=== PATIENT | female | born 1975 | race Caucasian/White ===

== ENCOUNTER 2017-05-05 15:06 | Emergency (ER) | payer OTHER ==
[~2017-05-05] VITALS: Wt 69.9 kg
[~2017-05-05 15:06] MED LIST: MACROBID100 M1 PO; PREDNICOT20 MG PO; TESSALON PERLE100 M1 PO; ULTRAM50 MG PO; VIBRAMYCIN100 MG PO
[2017-05-05 15:30] VITALS: BP 114/83
[2017-05-05] MEDS ORDERED: KENALOG 0.1%80 GM T (15:53)
== END 2017-05-05 15:58 | disposition home or self-care (01) ==
LOC: ED 15:06
DX: L25.9 Unspecified contact dermatitis, unspecified cause (principal); F17.200 Nicotine dependence, unspecified, uncomplicated; Z98.51 Tubal ligation status; Z88.8 Allergy status to other drugs, medicaments and biological substances

== ENCOUNTER 2018-01-13 14:22 | Emergency (ER) | payer OTHER ==
[~2018-01-13] VITALS: Ht 160 cm; Wt 68.0 kg
[~2018-01-13 14:22] MED LIST changes: +KENALOG 0.1%80 GM T
[2018-01-13 14:26] VITALS: BP 137/83
[2018-01-13] MEDS ORDERED: ZYRTEC10 MG PO (15:36)
[2018-01-13] MEDS ORDERED: PROAIR HFA8.5 GM INH (15:36)
[2018-01-13] MEDS ORDERED: ZOFRAN ODT4 MG SL (15:36)
[2018-01-13] MEDS ORDERED: DELTASONE20 M1 PO (15:36)
[2018-01-13] MEDS ORDERED: TESSALON PERLE100 M1 PO (15:36)
== END 2018-01-13 15:42 | disposition home or self-care (01) ==
LOC: ED 14:22
DX: J40 Bronchitis, not specified as acute or chronic (principal); F17.200 Nicotine dependence, unspecified, uncomplicated; B34.9 Viral infection, unspecified; Z98.51 Tubal ligation status; Z79.899 Other long term (current) drug therapy; Z88.8 Allergy status to other drugs, medicaments and biological substances

== ENCOUNTER 2018-08-07 07:27 | Emergency (ER) | payer OTHER ==
[~2018-08-07] VITALS: Ht 157.4 cm; Wt 68.0 kg
[~2018-08-07 07:27] MED LIST changes: +DELTASONE20 M1 PO; +PROAIR HFA8.5 GM INH; +ZOFRAN ODT4 MG SL; +ZYRTEC10 MG PO
[2018-08-07 07:29] VITALS: BP 158/93
[2018-08-07] MEDS ORDERED: PREDNISONE50 MG PO (07:40)
[2018-08-07] MEDS ORDERED: AVPAK AZITHROM250 MG PO (07:40)
[2018-08-07] MEDS ORDERED: PROVENTIL HFA6.7 GM INH (07:40)
== END 2018-08-07 07:44 | disposition home or self-care (01) ==
LOC: ED 07:27
DX: J45.901 Unspecified asthma with (acute) exacerbation (principal); J32.0 Chronic maxillary sinusitis; F17.200 Nicotine dependence, unspecified, uncomplicated; Z88.8 Allergy status to other drugs, medicaments and biological substances; Z79.899 Other long term (current) drug therapy

== ENCOUNTER 2019-05-30 14:50 | Emergency (ER) | payer OTHER ==
[~2019-05-30] VITALS: Ht 157.4 cm; Wt 68.0 kg
--- NOTE | ~2019-05-30 | EKG ---
[place], [place] ELECTROCARDIOGRAM REPORT NAME: JILLIAN ARZOLA UNIT #: [id number] ROOM: DOCTOR: EPIPHANY DRAFT REPORT BIRTHDATE: [birth year] [facility] Test Date: 2019-05-30 Test Time: 16:11:15 Pat Name: JILLIAN ARZOLA Department: Room: Gender: F Aviation Program Manager: Chloé Foley : 1975 Requested By: JOSEE COMER DNP Order Number: [id number] Reading MD: Sky Meredith MD Measurements Intervals [place] Rate: 71 P: 77 ME: 152 QRS: 77 QRSD: 89 T: 72 QT: 388 QTc: 422 Interpretive Statements Sinus rhythm Low voltage, precordial leads Minimal ST elevation with ME depression in inferior leads Electronically Signed On 05-31-2019 11:44:03 PDT by Sky Meredith MD CM:[email or web address]:ELECTROCARDIOGRAM REPORT [id number] JOSEE COMER DNP EPIPHANY DRAFT REPORT JOSEE COMER DNP
[~2019-05-30 14:50] MED LIST changes: +AVPAK AZITHROM250 MG PO; +PREDNISONE50 MG PO; +PROVENTIL HFA6.7 GM INH
[2019-05-30 14:53] VITALS: BP 145/90
[2019-05-30 15:52] LABS: BASO # 0.1 10*3/uL (0.0-0.1); BASO % 0.6 % (0.0-1.0); EOS # 0.2 10*3/uL (0.0-0.4); EOS % 1.5 % (1.0-4.0); HEMATOCRIT 44.5 % (37.0-47.0); HEMOGLOBIN 14.2 g/dl (12.0-16.0); LYMPH # 3.7 10*3/uL (1.3-4.4); LYMPH % 28.6 % (27.0-41.0); MEAN CELL VOLUME 88.6 fl (81.0-99.0); MEAN CORPUSCULAR HGB 28.3 pg (27.0-31.0); MEAN CORPUSCULAR HGB CONC 31.9 g/dl (33.0-37.0); MEAN PLATELET VOLUME 10.5 fl (9.6-12.3); MONO # 0.8 10*3/uL (0.1-1.0); MONO % 5.9 % (3.0-9.0); NEUT # 8.2 10*3/uL (2.3-7.9); NEUT % 63.1 % (47.0-73.0); PLATELET COUNT AUTOMATED 322 10*3/uL (130-400); RED BLOOD COUNT 5.02 10*6/uL (4.10-5.10); RED CELL DISTRI WIDTH 13.9 % (0-14.5); WHITE BLOOD COUNT 13.1 10*3/uL (4.8-10.8)
[2019-05-30 16:14] LABS: ALBUMIN 3.6 gm/dl (3.1-4.5); ALKALINE PHOSPHATASE 128 U/L (45-117); BUN 8 mg/dl (7-24); CHLORIDE 107 mmol/L (98-107); CREATININE 0.67 mg/dL (0.55-1.02); POTASSIUM 3.5 mmol/L (3.5-5.1); SGOT/AST 14 IU/L (3-35); SGPT/ALT 25 U/L (12-78); SODIUM 140 mmol/L (136-145); TOTAL PROTEIN 7.5 gm/dL (6.4-8.2); TROPONIN I < 0.015 ng/ml (<0.045)
[2019-05-30] MEDS ORDERED: FLONASE ALLERG9.9 ML NAS (16:36)
[2019-05-30] MEDS ORDERED: AUGMENTIN 875-875 MG PO (16:36)
[2019-05-30] MEDS ORDERED: PREDNISONE20 M1 PO (16:36)
[2019-05-30] MEDS ORDERED: CLARITIN10 MG PO (16:36)
== END 2019-05-30 16:44 | disposition home or self-care (01) ==
LOC: ED 14:50
PROVIDERS: Nurse Practitioner Family
DX: J01.90 Acute sinusitis, unspecified (principal); J20.9 Acute bronchitis, unspecified; Z88.8 Allergy status to other drugs, medicaments and biological substances

== ENCOUNTER 2019-06-20 09:22 | Emergency (ER) | payer OTHER ==
[~2019-06-20] VITALS: Ht 154.9 cm; Wt 68.0 kg
[~2019-06-20 09:22] MED LIST changes: +AUGMENTIN 875-875 MG PO; +CLARITIN10 MG PO; +FLONASE ALLERG9.9 ML NAS; +PREDNISONE20 M1 PO
[2019-06-20 09:25] VITALS: BP 145/82
[2019-06-20 10:47] LABS: BASO # 0.1 10*3/uL (0.0-0.1); BASO % 0.5 % (0.0-1.0); EOS # 0.1 10*3/uL (0.0-0.4); EOS % 1.3 % (1.0-4.0); HEMATOCRIT 41.1 % (37.0-47.0); HEMOGLOBIN 13.2 g/dl (12.0-16.0); LYMPH # 2.5 10*3/uL (1.3-4.4); LYMPH % 22.7 % (27.0-41.0); MEAN CELL VOLUME 87.4 fl (81.0-99.0); MEAN CORPUSCULAR HGB 28.1 pg (27.0-31.0); MEAN CORPUSCULAR HGB CONC 32.1 g/dl (33.0-37.0); MEAN PLATELET VOLUME 9.9 fl (9.6-12.3); MONO # 0.6 10*3/uL (0.1-1.0); MONO % 5.6 % (3.0-9.0); NEUT # 7.7 10*3/uL (2.3-7.9); NEUT % 69.5 % (47.0-73.0); PLATELET COUNT AUTOMATED 336 10*3/uL (130-400); RED CELL DISTRI WIDTH 14.1 % (0-14.5)
[2019-06-20 11:06] LABS: ALBUMIN 3.3 gm/dl (3.1-4.5); BUN 6 mg/dl (7-24); CHLORIDE 109 mmol/L (98-107); CREATININE 0.65 mg/dL (0.55-1.02); POTASSIUM 3.7 mmol/L (3.5-5.1); SGOT/AST 15 IU/L (3-35); SGPT/ALT 28 U/L (12-78); SODIUM 140 mmol/L (136-145)
[2019-06-20 11:07] LABS: ALKALINE PHOSPHATASE 143 U/L (45-117); TOTAL PROTEIN 7.4 gm/dL (6.4-8.2)
[2019-06-20] MEDS ORDERED: PROVENTIL HFA6.7 GM INH (11:48)
[2019-06-20] MEDS ORDERED: DELTASONE20 M1 PO (11:48)
[2019-06-20] MEDS ORDERED: TESSALON PERLE100 MG PO (11:49)
== END 2019-06-20 11:57 | disposition home or self-care (01) ==
LOC: ED 09:22
PROVIDERS: Nurse Practitioner Family
DX: B27.90 Infectious mononucleosis, unspecified without complication (principal); J45.901 Unspecified asthma with (acute) exacerbation; F17.200 Nicotine dependence, unspecified, uncomplicated; Z88.8 Allergy status to other drugs, medicaments and biological substances; Z79.899 Other long term (current) drug therapy; Z79.2 Long term (current) use of antibiotics

== ENCOUNTER 2019-06-27 09:06 | Emergency (ER) | payer OTHER ==
[~2019-06-27] VITALS: Ht 154.9 cm; Wt 69.9 kg
[~2019-06-27 09:06] MED LIST changes: +TESSALON PERLE100 MG PO
[2019-06-27 09:09] VITALS: BP 159/93
[2019-06-27] MEDS ORDERED: IBUPROFEN600 MG PO (09:46)
== END 2019-06-27 10:03 | disposition home or self-care (01) ==
LOC: ED 09:06
DX: B27.80 Other infectious mononucleosis without complication (principal); Z98.51 Tubal ligation status; Z79.899 Other long term (current) drug therapy; Z88.8 Allergy status to other drugs, medicaments and biological substances

== ENCOUNTER 2019-10-20 12:57 | Emergency (ER) | payer OTHER ==
[~2019-10-20] VITALS: Wt 79.4 kg
[~2019-10-20 12:57] MED LIST changes: +IBUPROFEN600 MG PO
[2019-10-20 13:17] VITALS: BP 132/90
[2019-10-20] MEDS ORDERED: PREDNISONE20 M1 PO (14:35)
[2019-10-20] MEDS ORDERED: FLONASE ALLERG9.9 ML NAS (14:35)
[2019-10-20] MEDS ORDERED: TESSALON PERLE100 MG PO (14:35)
== END 2019-10-20 14:30 | disposition home or self-care (01) ==
LOC: ED 12:57
DX: B34.9 Viral infection, unspecified (principal); J45.909 Unspecified asthma, uncomplicated; Z88.8 Allergy status to other drugs, medicaments and biological substances; Z79.899 Other long term (current) drug therapy; Z79.2 Long term (current) use of antibiotics

== ENCOUNTER → 2020-12-17 | Outpatient (CLI) | payer OTHER ==
[2020-12-17 11:54] LABS: CHOLESTEROL 243 mg/dL (<200); HDL CHOLESTEROL 47 mg/dl (40-60); LDL CHOLESTEROL 150 mg/dL (9-159); TRIGLYCERIDES 229 mg/dl (<150); VLDL CHOLESTEROL 46 mg/dL (6-40)
== END | disposition home or self-care (01) ==
LOC: LAB 11:02 → MAMMO 11:30
PROVIDERS: ATTEND Internal Medicine
DX: Z12.31 Encounter for screening mammogram for malignant neoplasm of breast (principal); E78.5 Hyperlipidemia, unspecified; N64.89 Other specified disorders of breast

== ENCOUNTER → 2021-07-27 | Outpatient (CLI) | payer MEDICAID | END | disposition home or self-care (01) | LOC: COVID19 15:30 | PROVIDERS: ATTEND Internal Medicine | DX: Z11.52 Encounter for screening for COVID-19 (principal) ==

== ENCOUNTER → 2022-07-08 | Outpatient (CLI) | payer MEDICAID ==
[2022-07-08 12:35] LABS: BUN 8 mg/dl (7-24); CHLORIDE 110 mmol/L (98-107); CREATININE 0.74 mg/dL (0.55-1.02); POTASSIUM 3.9 mmol/L (3.5-5.1); SODIUM 142 mmol/L (136-145)
== END | disposition home or self-care (01) ==
LOC: LAB 12:12
PROVIDERS: ATTEND Internal Medicine
DX: U07.1 COVID-19 (principal)

== ENCOUNTER 2024-09-20 14:45 | Emergency (ER) | payer MEDICAID ==
[~2024-09-20] VITALS: Ht 157.4 cm; Wt 72.6 kg
[2024-09-20] MEDS ORDERED: Labetalol Hydrochloride 20 MG/4 ML SYR IV ONE (15:20)
[2024-09-20] MEDS ORDERED: SODIUM CHLORIDE 0.9% 1,000 ML IV ONE (15:20)
[2024-09-20 15:31] LABS: BASO # 0.1 10*3/uL (0.0-0.1); BASO % 0.5 % (0.0-1.0); EOS # 0.3 10*3/uL (0.0-0.4); EOS % 1.8 % (1.0-4.0); HEMATOCRIT 47.3 % (37.0-47.0); MEAN CELL VOLUME 86.6 fl (81.0-99.0); MEAN CORPUSCULAR HGB 27.7 pg (27.0-31.0); MEAN CORPUSCULAR HGB CONC 31.9 g/dl (33.0-37.0); MEAN PLATELET VOLUME 10.1 fl (9.6-12.3); MONO % 6.2 % (3.0-9.0); NEUT # 9.6 10*3/uL (2.3-7.9); PLATELET COUNT AUTOMATED 343 10*3/uL (130-400); RED BLOOD COUNT 5.46 10*6/uL (4.10-5.10); RED CELL DISTRI WIDTH 14.3 % (0-14.5); WHITE BLOOD COUNT 15.3 10*3/uL (4.8-10.8)
[2024-09-20] MEDS ORDERED: NORVASC10 MG PO (15:33)
[2024-09-20 15:57] LABS: BUN 12 mg/dl (9-23); CHLORIDE 105 mmol/L (98-107); POTASSIUM 3.7 mmol/L (3.4-5.1)
[2024-09-20] MEDS ORDERED: amLODIPine besylate 10 MG TAB PO ONE (16:10)
[2024-09-20 17:02] VITALS: BP 165/93
== END 2024-09-20 17:03 | disposition home or self-care (01) ==
LOC: ED 14:45
PROVIDERS: Emergency Medicine
DX: I16.0 Hypertensive urgency (principal); F32.A Depression, unspecified; F41.9 Anxiety disorder, unspecified; K21.9 Gastro-esophageal reflux disease without esophagitis; E03.9 Hypothyroidism, unspecified; F17.200 Nicotine dependence, unspecified, uncomplicated; Z88.8 Allergy status to other drugs, medicaments and biological substances

== ENCOUNTER → 2024-11-01 | Outpatient (CLI) | payer MEDICAID ==
[~2024-11-01] MED LIST changes: +NORVASC10 MG PO
[2024-11-01 11:07] LABS: BASO # 0.1 10*3/uL (0.0-0.1); BASO % 0.5 % (0.0-1.0); EOS # 0.4 10*3/uL (0.0-0.4); EOS % 2.3 % (1.0-4.0); HEMATOCRIT 44.9 % (37.0-47.0); MEAN CELL VOLUME 85.7 fl (81.0-99.0); MEAN CORPUSCULAR HGB 27.9 pg (27.0-31.0); MEAN CORPUSCULAR HGB CONC 32.5 g/dl (33.0-37.0); MEAN PLATELET VOLUME 9.8 fl (9.6-12.3); MONO # 0.9 10*3/uL (0.1-1.0); MONO % 6.1 % (3.0-9.0); NEUT # 9.8 10*3/uL (2.3-7.9); NEUT % 64.2 % (47.0-73.0); PLATELET COUNT AUTOMATED 368 10*3/uL (130-400); RED BLOOD COUNT 5.24 10*6/uL (4.10-5.10); RED CELL DISTRI WIDTH 14.4 % (0-14.5); WHITE BLOOD COUNT 15.2 10*3/uL (4.8-10.8)
[2024-11-01 12:01] LABS: VITAMIN D, 25-HYDROXY 37.3 ng/mL (30-100)
[2024-11-01 12:02] LABS: ALKALINE PHOSPHATASE 217 U/L (46-116); BUN 12 mg/dl (9-23); CHLORIDE 105 mmol/L (98-107); CHOLESTEROL 145 mg/dL (<200); FREE T4 1.24 ng/dl (0.89-1.76); LDL CHOLESTEROL 59 mg/dL (9-159); POTASSIUM 3.6 mmol/L (3.4-5.1); SGPT/ALT 27 U/L (5-49); TOTAL PROTEIN 7.7 gm/dL (6.0-8.0); TRIGLYCERIDES 212 mg/dl (<150)
== END | disposition home or self-care (01) ==
LOC: LAB 09:59 → MAMMO 10:00
PROVIDERS: ATTEND Internal Medicine Nephrology
DX: Z12.31 Encounter for screening mammogram for malignant neoplasm of breast (principal); E78.2 Mixed hyperlipidemia; F41.8 Other specified anxiety disorders; E55.9 Vitamin D deficiency, unspecified

== ENCOUNTER → 2025-06-07 | Outpatient (CLI) | payer MEDICAID | END | disposition home or self-care (01) | LOC: CT 11:00 | PROVIDERS: ATTEND Internal Medicine Nephrology | DX: Z12.2 Encounter for screening for malignant neoplasm of respiratory organs (principal); F17.210 Nicotine dependence, cigarettes, uncomplicated ==